=== PATIENT | male | born 1955 | race Caucasian/White ===

== ENCOUNTER 2018-10-08 22:54 | Inpatient (IN) | payer MEDICARE ==
[2018-10-08] MEDS ORDERED: Lorazepam 2 MG/ML VIAL ONE (23:26)
[2018-10-08] MEDS ORDERED: Octreotide Acetate 1,250 MCG in Sodium Chloride 0.9% 250 ML 250 ML IVPB SCH (23:45)
[2018-10-08 23:53] LABS: PTT 24.3 SEC (22.9-36.1); Prothrombin Time 13.5 SEC (12.0-14.7)
--- NOTE | 2018-10-08 23:53 | RAD ---
EXAM: CHEST ONE VIEW HISTORY: Vomiting blood. Altered mental status. Sepsis. COMPARISON: None FINDINGS: The cardiac silhouette and pulmonary vasculature is within normal limits. Calcified right hilar and m ediastinal lymph nodes are seen. The lungs are clear. The osseous structures are intact. IMPRESSION: No acute cardiopulmonary process.
[2018-10-09 00:09] LABS: Acetaminophen Less than 6.0 mcg/mL (10.0-30.0); Alcohol Less than 10 mg/dL (Less than 10); Magnesium 1.9 mg/dL (1.6-2.6); Salicylate Less than 8.0 mg/dL (15.0-30.0)
[2018-10-09 00:14] LABS: ALT (SGPT) 27 U/L (8-55); AST (SGOT) 20 U/L (5-34); Albumin 3.8 g/dL (3.4-4.8); Alkaline Phosphatase 44 U/L (40-150); Anion Gap 12 mmol/L (10-20); BUN (Urea Nitrogen) 36 mg/dL (8.4-25.7); Bilirubin, Total 3.1 mg/dL (0.2-1.2); Calc. Creatinine Clearance 0 mL/min (70-130); Carbon Dioxide 28 mmol/L (23-31); Chloride 95 mmol/L (98-107); Estimated GFR-MDRD Greater than 90; Globulin 2.4 g/dL (2.4-3.5); Glucose 140 mg/dL (80-115); Lipase 5 U/L (8-78); Potassium 3.2 mmol/L (3.5-5.1); Protein, Total 6.2 g/dL (5.8-8.1); Sodium 132 mmol/L (136-145)
[2018-10-09 00:17] LABS: Band 16 % (5-11); Hemoglobin 13.2 g/dL (14.0-18.0); Lymphocytes 6 % (21-51); MDiff Complete? YES; Mean Corpuscular HGB CONC 33.9 g/dL (32.0-36.0); Mean Corpuscular Hemoglobin 34.1 pg (27.0-31.0); Mean Platelet Volume 8.4 fL (7.4-10.4); Monocytes 7 % (0-10); Neutrophil 71 % (42-75); Platelet Count 316 thou/uL (130-400); RBC Distribution Width 11.7 % (11.5-14.5); Red Blood Cell (RBC) Count 3.87 mill/uL (4.70-6.10); White Blood Cell (WBC) Count 23.9 thou/uL (4.8-10.8)
[2018-10-09 00:31] LABS: CKMB 1.5 ng/mL (0-6.6)
[2018-10-09] MEDS ORDERED: Lorazepam 2 MG/ML VIAL ONE (00:35)
[2018-10-09 02:59] LABS: Troponin I 0.018 ng/mL (< 0.028)
[2018-10-09] MEDS ORDERED: Ondansetron ODT 4 MG TAB SL PRN (03:43)
[2018-10-09] MEDS ORDERED: Ondansetron PF 4 MG/2 ML Vial IVP PRN (03:43)
[2018-10-09] MEDS ORDERED: Lorazepam 2 MG/ML VIAL SLOW IVP PRN (03:43)
[2018-10-09] MEDS ORDERED: Sodium Chloride 0.9% 1,000 ML IV SCH (03:45)
[2018-10-09 03:51] LABS: Lactic Acid 1.3 mmol/L (0.5-2.2)
[2018-10-09 04:01] LABS: Bilirubin Negative (Negative); Blood, Urine Small (Negative); Clarity CLEAR (Clear); Glucose, Urine (Dipstick) Negative (Negative); Leukocyte Negative (Negative); Nitrite Negative (Negative); Protein, Urine (Dipstick) Negative (Neg-Trace); Specific Gravity, Urine 1.043 (1.002-1.036); Urobilinogen 0.2 mg/dL (0.2-1.0); pH, Urine 6.5 (5.0-9.0)
[2018-10-09 04:03] LABS: Bacteria/HPF None Seen HPF (None Seen); Hyaline Casts/LPF 0-3 HYALINE CAST LPF (0-3 Hyaline); Squamous Epithelial None Seen HPF (0-3); WBC/HPF 0-3 HPF (0-3)
[2018-10-09 04:06] VITALS: BMI 22.6
[2018-10-09 04:09] LABS: Amphetamine Not Detected (NotDetected); Cocaine Metabolite Screen Not Detected (NotDetected); Medtox Reader # READER 4; Methamphetamine Not Detected (NotDetected); Opiate Screen Not Detected (NotDetected); Phencyclidine (PCP) Not Detected (NotDetected); THC/Cannabinoid Screen Not Detected (NotDetected)
[2018-10-09 04:10] LABS: Barbiturates Screen Not Detected (NotDetected); Benzodiazepine Screen Detected (NotDetected); Medtox Control Line Valid? VALID (VALID); Methadone Not Detected (NotDetected); Oxycodone Screen Not Detected (NotDetected); Tricyclic Screen Not Detected (NotDetected)
[2018-10-09] MEDS ORDERED: Diazepam 5 MG TAB PO PRN (05:29)
[2018-10-09] MEDS ORDERED: Diazepam 5 MG TAB PO SCH (05:30)
[2018-10-09] MEDS ORDERED: Thiamine HCl 200 MG/2 ML VIAL IM SCH (05:30)
--- NOTE | 2018-10-09 05:51 | HP ---
PRIMARY CARE PHYSICIAN: Unknown. CODE STATUS: Full code. TIME OF EVALUATION: 2:00 a.m. By the time of my examination, the patient has had sedation due to DT and the patient is unable to give any history. Information has been gathered from the records and from the ER staff. CHIEF COMPLAINT: GI bleeds and change in mental status. HISTORY OF PRESENT ILLNESS: This is a 63-year-old male patient with past medical history of alcohol abuse, hyperlipidemia, hypertension, neurological disease, and generalized seizures, came to the hospital after having generalized weakness and hematemesis, when he was mowing the lawn this afternoon, has continued vomiting during the evening and for that reason, he was brought in immediately to the ER. The patient was found to be tachycardic and hypertensive. Symptoms were severe with no clear triggers, no alleviating factors. He was also found to have a white count of 24,000, with a positive UA and hyperammonemia of 102. REVIEW OF SYSTEMS: Unable to obtain. The patient is nonverbal due to sedation. He is arousal. PAST MEDICAL HISTORY: As mentioned in the HPI. PAST SURGICAL HISTORY: Leg surgery and surgical history of appendectomy. PSYCHIATRIC HISTORY: No previous psych history. SOCIAL HISTORY: The patient drinks everyday, more than 10 drinks per day. Alcohol history, 12 packs a day. The patient denies drug use history. No smoking history. FAMILY HISTORY: Reviewed, noncontributory for current presentation. KNOWN ALLERGIES: No known drug allergies. REPORTED MEDICATION: Aspirin. PHYSICAL EXAMINATION: VITAL SIGNS: On presentation; blood pressure 126/80 with heart rate 112, respiratory rate was 18, and temperature 99.2. Pain was 0/10. Oxygen saturation 98% on room air. GENERAL APPEARANCE: The patient is sedated after getting Ativan for DT, disoriented, arousal. HEENT: Eyes, normal conjunctivae. Moist oral mucosa. Anicteric. No JVD. RESPIRATORY: Bilateral air entry. No rales. No wheezing. Symmetric expansion. CARDIOVASCULAR: The patient is tachycardic and hypertensive. No murmurs. No gallop. Mild bilateral leg edema. ABDOMEN: Soft. Normal bowel sounds. MUSCULOSKELETAL: Baseline range of motion and strength. SKIN: Warm and intact. No pallor. No rash. No redness. Capillary refill seems to be intact. NEURO: No evidence of any new focal weakness. PSYCH: Unable to fully explore. The patient is sedated due to Ativan due to agitation and hallucinations as per the ER report. DIAGNOSTIC DATA: EKG; the patient had sinus tachycardia, [place] 148, QRS 78, and QT corrected 471. Chest x-ray was reviewed. The patient has no acute cardiopulmonary process. LABORATORY DATA: Reviewed. The patient has white count of 23.9 with hemoglobin 13, MCV 101, and platelet count 316. PT 13.5, INR 1.0, and PTT 24.3. Chemistry; sodium 132, potassium 3.2, chloride 95, carbon dioxide 28, anion gap 12, BUN 36, creatinine 0.77, GFR greater than 90, and glucose 140. Lactic acid 2.4, repeat one 1.3. Calcium 9, magnesium 1.9, and total bilirubin 3.1. LFTs were negative. The troponins; the first one was 0.038 and the second one was 0.018. Serum total protein 6.2 and lipase 5. Urine was done and was negative for any infection. Toxicology was done, only positive medication was benzodiazepine. ASSESSMENT AND PLAN: The patient will be placed in the hospital with following medical problems; 1. Delirium tremens. The patient has acute encephalopathy associated with tachycardia and hypertension. The patient is a chronic alcohol user. Alcohol was negative. The patient is being given Ativan, has been sedated. He is going to be placed in IMCU. We will monitor closely. 2. Systemic inflammatory response syndrome. The patient has tachycardia and also has leukocytosis, unclear source for any infection, we will monitor. Lactic acidosis resolved in the ER after initial treatment. We will treat accordingly. 3. Upper gastrointestinal bleeding. The patient has reported hematemesis. We will trend hemoglobin and continue octreotide and Protonix drip, we will consult GI. Follow recommendations. 4. Acute hepatic encephalopathy. The patient has ammonia of 102. However, he has gastrointestinal bleeding, so we will not give lactulose still Gastroenterology sees the patient. We will give rifaximin. 5. Deep venous thrombosis prophylaxis. Place the patient on SCDs. 6. Hyperlipidemia. Low-cholesterol diet is advised. Reconcile home medications. 7. Hypertension, is controlled. Reconcile home medications. We will not treat aggressively due to risk of hypotension. Job ID: [id number]
[2018-10-09] MEDS: Pantoprazole 80 MG, Admixture Fee 1 EACH in Sodium Chloride 0.9% 100 ML IVP SCH ×2 (05:52→15:09)
[2018-10-09 06:03] LABS: Hemoglobin 10.6 g/dL (14.0-18.0)
[2018-10-09 06:31] LABS: Troponin I 0.022 ng/mL (< 0.028)
[2018-10-09 07:29] LABS: Anion Gap 9 mmol/L (10-20); BUN (Urea Nitrogen) 24 mg/dL (8.4-25.7); Calc. Creatinine Clearance 148 mL/min (70-130); Calcium 7.9 mg/dL (7.8-10.44); Carbon Dioxide 29 mmol/L (23-31); Chloride 102 mmol/L (98-107); Estimated GFR-MDRD Greater than 90; Glucose 143 mg/dL (80-115); Magnesium 2.2 mg/dL (1.6-2.6); Phosphorus 3.3 mg/dL (2.3-4.7); Potassium 3.1 mmol/L (3.5-5.1); Sodium 137 mmol/L (136-145)
[2018-10-09 07:31] LABS: Iron 161 ug/dL (65-175); Iron Binding Capacity, Total 164 mcg/dL (261-462)
[2018-10-09] MEDS: Rifaximin 550 MG TAB PO SCH ×2 (09:34→21:51)
[2018-10-09] MEDS: Folic Acid 1 MG TAB PO SCH (09:34)
[2018-10-09] MEDS: Multivitamin W/ Minerals 1 TAB PO SCH (09:34)
[2018-10-09] MEDS ORDERED: Albuterol Sulfate 1.25 MG/3 ML NEB ONE (11:53)
[2018-10-09] MEDS: D5 NS w/ 40 mEq KCl 1,000 ML IV SCH ×2 (13:48→21:51)
--- NOTE | 2018-10-09 15:14 | OP ---
DATE OF PROCEDURE: 10/09/2018 OPERATIVE PROCEDURE: Esophagogastroduodenoscopy. PREOPERATIVE DIAGNOSIS: Gastrointestinal bleeding. POSTOPERATIVE DIAGNOSES: 1. Large circumference ulcer over distal esophagus with blood clot and also hemorrhagic appearing mucosa. 2. Retained blood clots in the gastric fundus, but no active bleeding seen. 3. Hiatal hernia. DESCRIPTION OF PROCEDURE: The patient was placed on his left lateral position and was given sedation by Anesthesia Department. A Pentax video gastroscope under direct vision passed down the oropharynx, past the GE junction into the stomach. In the upper esophagus, no pathology seen. The patient had evidence of large ulceration occupying the entire loop of the esophagus with a hemorrhagic appearing mucosa and some blood clots. No active bleeding seen. I do not see any varicosities. Because of the esophagitis and ulceration, the varicosities could be hiatal hernia. There was some old blood clots in the fundus,which were suctioned. There was no fresh bleeding seen. In the gastric body, gastric antrum, incisura angularis, no pathology seen. The duodenal bulb and descending duodenum, no pathology seen. The scope was carefully withdrawn and water was used to irrigate and washout the esophogeal mucosa. This area of hemorrhage-appearing mucosa has a large ulceration. There is no active bleeding seen. The stomach was decompressed and scope was removed. RECOMMENDATIONS: 1. Treat for alcohol withdrawal. 2. Continue PPI. 3. Serial hemoglobin and hematocrit. Job ID: [id number]
[2018-10-09 18:43] LABS: Hemoglobin 9.6 g/dL (14.0-18.0)
[2018-10-09] MEDS: Acetaminophen 325 MG TAB PO PRN (22:05)
[2018-10-10 00:14] LABS: Hemoglobin 8.8 g/dL (14.0-18.0)
[2018-10-10] MEDS: Pantoprazole 80 MG, Admixture Fee 1 EACH in Sodium Chloride 0.9% 100 ML IVP SCH (00:52)
[2018-10-10 03:39] LABS: #Basophils 0.1 thou/uL (0.0-0.2); #Eosinphils 0.1 thou/uL (0.0-0.7); #Lymphocytes 2.6 thou/uL (1.20-3.40); #Monocytes 0.5 thou/uL (0.11-0.59); #Neutrophils 5.5 thou/uL (1.40-6.50); %Basophils 0.6 % (0.0-1.0); %Eosinophils 0.9 % (0.0-10.0); %Lymphocytes 29.7 % (21.0-51.0); %Monocytes 5.8 % (0.0-10.0); Mean Corpuscular HGB CONC 34.1 g/dL (32.0-36.0); Mean Corpuscular Hemoglobin 34.7 pg (27.0-31.0); Mean Platelet Volume 8.5 fL (7.4-10.4); Platelet Count 217 thou/uL (130-400); RBC Distribution Width 11.5 % (11.5-14.5); White Blood Cell (WBC) Count 8.8 thou/uL (4.8-10.8)
[2018-10-10 03:53] LABS: Anion Gap 8 mmol/L (10-20); BUN (Urea Nitrogen) 10 mg/dL (8.4-25.7); Calc. Creatinine Clearance 154 mL/min (70-130); Calcium 7.7 mg/dL (7.8-10.44); Carbon Dioxide 26 mmol/L (23-31); Chloride 107 mmol/L (98-107); Estimated GFR-MDRD Greater than 90; Glucose 160 mg/dL (80-115); Potassium 3.5 mmol/L (3.5-5.1); Sodium 137 mmol/L (136-145)
[2018-10-10] MEDS: D5 NS w/ 40 mEq KCl 1,000 ML IV SCH ×2 (05:52→09:34)
[2018-10-10] MEDS: Acetaminophen 325 MG TAB PO PRN ×2 (07:06→15:54)
[2018-10-10] MEDS: Folic Acid 1 MG TAB PO SCH (08:52)
[2018-10-10] MEDS: Rifaximin 550 MG TAB PO SCH ×2 (08:52→20:00)
[2018-10-10] MEDS: Multivitamin W/ Minerals 1 TAB PO SCH (08:52)
[2018-10-10] MEDS: Magnesium Oxide 400 MG TAB PO SCH (08:52)
[2018-10-10] MEDS: Thiamine 100 MG TAB PO SCH (08:52)
[2018-10-10] MEDS: Diazepam 5 MG TAB PO PRN ×2 (09:27→20:00)
--- NOTE | 2018-10-10 09:29 | PDOC.PN ---
- Subjective Encounter Start Date: 10/10/18 (f/u alcohol withdrawal) Encounter Start Time: 09:27 Subjective: Pt without any complaints. 4 bm's dark/tarry overnight. -: Denies any pain. Is feeling jittery - requesting something to help with -: this. notes a lot of loss and pain in life, and increasing alcohol at home - Objective Resuscitation Status - Order Detail: 10/09/18 04:26 Resuscitation Status Routine Resuscitation Status: FULL: Full Resuscitation Vital Signs & Weight: Vital Signs (12 hours) Temp BP 10/10/18 07:10 97.8 F 10/10/18 04:00 122/69 10/10/18 03:10 97.5 F L 10/10/18 00:00 111/78 10/09/18 23:46 97.6 F Weight Weight 174 lb 14.4 oz Most Recent Monitor Data Heart Rate from ECG 78 NIBP 116/69 NIBP BP-Mean 84 Respiration from ECG 16 SpO2 96 I&O: 10/09/18 10/10/18 10/11/18 06:59 06:59 06:59 Intake Total 3848.5 Output Total 1750 Balance 2098.5 Result Diagrams: 10/10/18 03:29 10/10/18 03:29 EKG Reviewed by me: Yes (tele - sinus 80's, pvc's) Phys Exam - Physical Examination Constitutional: NAD Respiratory: no wheezing, no rales, no rhonchi, clear to auscultation bilateral Cardiovascular: RRR, no significant murmur Gastrointestinal: soft, non-tender, no distention, positive bowel sounds Musculoskeletal: no edema, pulses present Neurological: non-focal Psychiatric: normal affect Dx/Plan (1) GI bleed Code(s): K92.2 - GASTROINTESTINAL HEMORRHAGE, UNSPECIFIED Status: Acute (2) Alcohol abuse Code(s): F10.10 - ALCOHOL ABUSE, UNCOMPLICATED Status: Chronic (3) Hyperammonemia Code(s): E72.20 - DISORDER OF UREA CYCLE METABOLISM, UNSPECIFIED Status: Resolved (4) Anemia Code(s): D64.9 - ANEMIA, UNSPECIFIED Status: Acute Qualifiers: Other causes of anemia: acute posthemorrhagic - Plan * Distal esophageal ulcer - d/w Dr. Luna and can d/c octreotide, chagne protonix to BID PO, and advance diet to mechanical soft * lower IVF rate * ammonia lower - change lactulose to once daily * continue ASE protocol and vitamin replacement/supplement * will check CBC this afternoon and again tomorrow * pt/ot * pt interested in spiritual support to assist with loss/grief and current situation that he feels bad about * * dvt prophy -scd's * code status full. * * pt remains at high risk in current condition. Reviewed plan of care with patient/RN, no questions or further needs at end of eval.
--- NOTE | 2018-10-10 11:36 | PRG ---
DATE OF SERVICE: 10/10/2018 SUBJECTIVE: Mr. Juan David Kong is a 63-year-old male, hospitalized with upper GI bleeding. He underwent EGD and was found to have a very large confluent ulceration over the distal esophagus. There is no hemorrhagic area over the esophagus. At the time of endoscopy, no active bleeding seen. He did have some old blood in the stomach. The patient's blood count has been dropping down slowly. He had one stool today and he had three stools yesterday. All the stools are dark in color. Blood count did drop down from admitting hemoglobin 13.2 to 10.6 yesterday and 9 today. It has been staying around 9. Yesterday, it was 8.8 and today 9. His hematocrit is 24.4. He has no abdominal pain, no nausea or vomiting. He had one stool. He is tolerating clear liquid diet. PHYSICAL EXAMINATION: GENERAL: Appears comfortable. He is awake, alert, and communicative. Afebrile. Pulse is 95, blood pressure is 115/82. CARDIOVASCULAR AND LUNGS: Within normal limits. ABDOMEN: Soft. No organomegaly. No tenderness. No masses. LABORATORY DATA: WBC 8800, hemoglobin is 9, hematocrit 26.4, MCV 102, platelet count 217,000. Chemistry panel; the sodium and lytes are normal. BUN is 10, creatinine 0.53, glucose 160, calcium 7.7. RECOMMENDATIONS: 1. Mechanical soft diet. 2. Discontinue octreotide and IV Protonix drip. 3. Serial H and H. 4. Protonix 40 mg p.o. twice a day. If he does well, consider discharge to medical floor. Job ID: [id number]
[2018-10-10 13:08] LABS: #Eosinphils 0.1 thou/uL (0.0-0.7); #Lymphocytes 1.6 thou/uL (1.20-3.40); #Monocytes 0.6 thou/uL (0.11-0.59); #Neutrophils 5.9 thou/uL (1.40-6.50); %Basophils 0.1 % (0.0-1.0); %Eosinophils 1.1 % (0.0-10.0); %Lymphocytes 19.7 % (21.0-51.0); %Monocytes 6.9 % (0.0-10.0); %Neutrophils 72.1 % (42.0-75.0); Hemoglobin 10.5 g/dL (14.0-18.0); Mean Corpuscular HGB CONC 33.4 g/dL (32.0-36.0); Mean Corpuscular Hemoglobin 34.3 pg (27.0-31.0); Mean Platelet Volume 8.4 fL (7.4-10.4); Platelet Count 240 thou/uL (130-400); RBC Distribution Width 11.6 % (11.5-14.5); Red Blood Cell (RBC) Count 3.06 mill/uL (4.70-6.10); White Blood Cell (WBC) Count 8.2 thou/uL (4.8-10.8)
--- NOTE | 2018-10-10 19:05 | CON ---
DATE OF CONSULTATION: 10/10/2018 SUBJECTIVE: Mr. Kong is a 63-year-old male, who presented with GI bleed. He subsequently underwent endoscopy, was found to have an esophageal ulceration. He is not clinically bleeding at this time. OBJECTIVE: GENERAL: Mr. Kong is a 63-year-old male. VITAL SIGNS: He is afebrile. Blood pressure is 111/78, heart rate is in the 70s, respiratory rate is in the teens, oximetry is 96% on room air. His weight is 174 pounds. His intake and output are positive just over 2 L. HEENT: Pupils react. NECK: Supple. LUNGS: Clear. HEART: Regular rhythm. ABDOMEN: Soft and nontender. EXTREMITIES: Without clubbing, cyanosis, or edema. PAST HISTORY: Unknown FAMILY HISTORY: Unknown SOCIAL HISTORY: He admits to drinking pretty much all day every day. He usually drinks just beer, drinks more than a 12-pack a day. He is a nonsmoker. REVIEW OF SYSTEMS: 10 point review of systems completed, otherwise negative. LABORATORY DATA: Hemoglobin was 10.6 yesterday morning and is 10.5 now. His electrolytes are normal. He is felt to be a candidate to transfer out of the critical care/intermediate care unit. Other problems include "CP," history of lipid disorder, history of hypertension, history of seizure disorder reportedly, history of an appendectomy and surgery on the leg. He admits to drinking pretty much all day every day. He usually drinks just beer, drinks more than a 12-pack a day. He is a nonsmoker. He is formally in the [employer] business. He received a laid off for his company closed. He is currently not working. IMPRESSION: Gastrointestinal bleeding secondary to an esophageal ulcer. He has been seen because of his present stay in the intermediate care unit. I do not feel that he is alcohol withdrawing, although I am not sure his memories are sharp as it should be. He did come in with an elevated ammonia and this has been treated. He obviously with this has significant liver disease. He has been followed by Gastroenterology. He does not have a coagulopathy, however, and had a normal serum protein on admission so he clearly has adequate liver synthetic function at least for now. He recognizes the need to get into some type of support network. He has a friend, who is an alcohol counselor, who had not been drinking for 5 years and he is trying to make some arrangements to start spending time with him. Once he transfers out of the intermediate care unit, probably there is no need for us to see him since Gastroenterology and the hospitalist are providing excellent care. We will sign off. TIME SPENT: This is a 70-minute consult, with greater than 50% of the time spent on the unit coordinating care, counseling the patient. Job ID: [id number] MTDD
[2018-10-11] MEDS: D5 NS w/ 40 mEq KCl 1,000 ML IV SCH (05:26)
[2018-10-11 05:36] LABS: #Eosinphils 0.2 thou/uL (0.0-0.7); #Lymphocytes 2.5 thou/uL (1.20-3.40); #Monocytes 0.5 thou/uL (0.11-0.59); #Neutrophils 4.1 thou/uL (1.40-6.50); %Basophils 0.5 % (0.0-1.0); %Eosinophils 2.4 % (0.0-10.0); %Lymphocytes 33.9 % (21.0-51.0); %Monocytes 7.3 % (0.0-10.0); %Neutrophils 55.9 % (42.0-75.0); Hemoglobin 9.4 g/dL (14.0-18.0); Mean Corpuscular HGB CONC 33.9 g/dL (32.0-36.0); Mean Corpuscular Hemoglobin 34.6 pg (27.0-31.0); Mean Platelet Volume 8.8 fL (7.4-10.4); Platelet Count 225 thou/uL (130-400); RBC Distribution Width 11.5 % (11.5-14.5); Red Blood Cell (RBC) Count 2.72 mill/uL (4.70-6.10); White Blood Cell (WBC) Count 7.3 thou/uL (4.8-10.8)
[2018-10-11 05:58] LABS: ALT (SGPT) 28 U/L (8-55); AST (SGOT) 26 U/L (5-34); Alkaline Phosphatase 36 U/L (40-150); Anion Gap 10 mmol/L (10-20); BUN (Urea Nitrogen) 4 mg/dL (8.4-25.7); Bilirubin, Total 0.9 mg/dL (0.2-1.2); Calc. Creatinine Clearance 148 mL/min (70-130); Calcium 8.2 mg/dL (7.8-10.44); Carbon Dioxide 26 mmol/L (23-31); Chloride 107 mmol/L (98-107); Estimated GFR-MDRD Greater than 90; Globulin 1.9 g/dL (2.4-3.5); Glucose 103 mg/dL (80-115); Potassium 3.3 mmol/L (3.5-5.1); Protein, Total 4.9 g/dL (5.8-8.1); Sodium 140 mmol/L (136-145)
[2018-10-11] MEDS: Thiamine 100 MG TAB PO SCH (08:07)
[2018-10-11] MEDS: Acetaminophen 325 MG TAB PO PRN (08:07)
[2018-10-11] MEDS: Magnesium Oxide 400 MG TAB PO SCH (08:07)
[2018-10-11] MEDS: Rifaximin 550 MG TAB PO SCH (08:07)
[2018-10-11] MEDS: Folic Acid 1 MG TAB PO SCH (08:08)
[2018-10-11] MEDS: Multivitamin W/ Minerals 1 TAB PO SCH (08:08)
[2018-10-11] MEDS: Diazepam 5 MG TAB PO PRN (09:45)
--- NOTE | 2018-10-11 10:57 | PRG ---
DATE OF SERVICE: 10/11/2018 SUBJECTIVE: This is a 63-year-old male, hospitalized with upper GI bleeding 3 days ago. He underwent EGD and was found to have a very large ulceration in the distal esophagus and some hemorrhagic mucosa. He has done well over the last 48 hours. He is still passing some dark stool from the old blood left in the colon. stable. It has been drifting around 9 to 9.4. He has no abdominal pain. No nausea or vomiting. He feels very weak and no energy and he is trying to ambulate. OBJECTIVE: GENERAL: Appears comfortable. He is awake, alert, and communicative. He is not confused. He is oriented to time, place, and person. VITAL SIGNS: Temperature 98.4 degrees Fahrenheit, pulse is 83, blood pressure 113/73. CARDIOVASCULAR: Within normal limits. LUNGS: Within normal limits. ABDOMEN: Soft and nontender. Bowel sounds active. LABORATORY DATA: From today, CBC; WBC 7300, hemoglobin 9.4, hematocrit 27.7, MCV 102, platelet count 225,000. Chem-7 is actually normal except for slightly low potassium of 3.3. Liver function tests are actually normal. The albumin is 3. RECOMMENDATIONS: 1. Continue PPI. 2. Diet as tolerated. 3. Follow up LFTs. 4. He is advised to stop drinking completely when he gets out of the hospital. Job ID: [id number]
--- NOTE | 2018-10-11 12:01 | PDOC.PN ---
- Subjective Encounter Start Date: 10/11/18 (f/u esophageal ulcer) Encounter Start Time: 11:59 Subjective: Pt c/o weakness, some lightheadedness, dull headache. Denies any n/ v/ -: continues to pass dark stools. - Objective Resuscitation Status - Order Detail: 10/09/18 04:26 Resuscitation Status Routine Resuscitation Status: FULL: Full Resuscitation Vital Signs & Weight: Vital Signs (12 hours) Temp Pulse Resp BP BP BP Pulse Ox 10/11/18 11:38 98.2 F 89 18 115/78 98 10/11/18 08:08 98.2 F 108 H 20 118/82 98 10/11/18 08:00 118/82 98 10/11/18 04:00 98.4 F 83 16 113/73 96 10/11/18 00:00 98.1 F 78 16 117/70 117/70 95 Weight Weight 174 lb 14.4 oz Most Recent Monitor Data Heart Rate from ECG 80 NIBP 139/82 NIBP BP-Mean 101 Respiration from ECG 19 SpO2 99 I&O: 10/10/18 10/11/18 10/12/18 06:59 06:59 06:59 Intake Total 3848.5 2060.5 Output Total 1750 3575 Balance 2098.5 -1514.5 Result Diagrams: 10/11/18 04:36 10/11/18 04:36 Phys Exam - Physical Examination Constitutional: NAD Respiratory: no wheezing, no rales, no rhonchi, clear to auscultation bilateral Cardiovascular: RRR, no significant murmur Gastrointestinal: soft, non-tender, no distention, positive bowel sounds Musculoskeletal: no edema Neurological: non-focal Psychiatric: normal affect Deviation from normal: occ tearful when he discusses how bad he felt prior to admission Dx/Plan (1) GI bleed Code(s): K92.2 - GASTROINTESTINAL HEMORRHAGE, UNSPECIFIED Status: Acute (2) Alcohol abuse Code(s): F10.10 - ALCOHOL ABUSE, UNCOMPLICATED Status: Chronic (3) Hyperammonemia Code(s): E72.20 - DISORDER OF UREA CYCLE METABOLISM, UNSPECIFIED Status: Resolved (4) Anemia Code(s): D64.9 - ANEMIA, UNSPECIFIED Status: Acute Qualifiers: Other causes of anemia: acute posthemorrhagic (5) Hypokalemia Code(s): E87.6 - HYPOKALEMIA Status: Acute (6) Hypoalbuminemia Code(s): E88.09 - OTH DISORDERS OF PLASMA-PROTEIN METABOLISM, NEC Status: Acute - Plan * * Distal esophageal ulcer - endoscopy by Dr. Luna, on BID PPI * * ammonia level resolved - will d/c lactulose and rifaximin. Pt does not have a hx of cirrhosis. Follow mental status and recheck in AM. * * continue ASE protocol and vitamin replacement/supplement * anemia stable * replace potassium - will add mag level on today's labs * * cont pt/ot * case management consult for SNF vs home health for weakness - anticipate pt ready for d/c tomorrow from acute care * * pt interested in spiritual support to assist with loss/grief and current situation that he feels bad about - spiritual consult placed, RN to call today * * dvt prophy -scd's * code status full. * * pt remains at high risk in current condition. Reviewed plan of care with patient/RN, no questions or further needs at end of eval..
--- NOTE | 2018-10-11 20:05 | PRG ---
DATE OF SERVICE: 10/11/2018 OBJECTIVE: VITAL SIGNS: He is afebrile. Heart rate is in 80s, respiratory rates in the teens, and blood pressure 115/78. LUNGS: Clear. HEART: Regular rhythm. ABDOMEN: Soft. EXTREMITIES: Without edema. LABORATORY DATA: White count 7.3, hemoglobin 9.4, and platelets 225. Sodium 140, potassium 3.3, chloride 107, bicarb 26, BUN 4, and creatinine 0.59. IMPRESSION: 1. Status post gastrointestinal bleed secondary to esophageal ulcer, clinically stable. 2. Heavy alcohol consumption prior to admission. He has contacted his sponsor. This is not alcoholics anonymous, but it is a Taoism support group that he has used in the past and plans to get back in with. There is no reason for Pulmonary to continue following. We will sign off. Job ID: [id number]
[2018-10-11] MEDS ORDERED: Melatonin 3 MG TAB PO PRN (20:08)
[2018-10-11] MEDS ORDERED: Diazepam 5 MG TAB PO PRN (20:09)
[2018-10-12 04:00] LABS: #Eosinphils 0.2 thou/uL (0.0-0.7); #Lymphocytes 2.5 thou/uL (1.20-3.40); #Monocytes 0.5 thou/uL (0.11-0.59); #Neutrophils 3.8 thou/uL (1.40-6.50); %Basophils 0.5 % (0.0-1.0); %Eosinophils 2.4 % (0.0-10.0); %Lymphocytes 35.3 % (21.0-51.0); %Monocytes 7.4 % (0.0-10.0); %Neutrophils 54.4 % (42.0-75.0); Hemoglobin 9.6 g/dL (14.0-18.0); Mean Corpuscular HGB CONC 33.4 g/dL (32.0-36.0); Mean Corpuscular Hemoglobin 34.1 pg (27.0-31.0); Mean Platelet Volume 8.3 fL (7.4-10.4); Platelet Count 225 thou/uL (130-400); RBC Distribution Width 11.6 % (11.5-14.5)
[2018-10-12 04:28] LABS: ALT (SGPT) 37 U/L (8-55); AST (SGOT) 34 U/L (5-34); Albumin 3.2 g/dL (3.4-4.8); Alkaline Phosphatase 39 U/L (40-150); Anion Gap 10 mmol/L (10-20); BUN (Urea Nitrogen) 6 mg/dL (8.4-25.7); Bilirubin, Total 0.7 mg/dL (0.2-1.2); Calc. Creatinine Clearance 143 mL/min (70-130); Calcium 8.4 mg/dL (7.8-10.44); Carbon Dioxide 26 mmol/L (23-31); Chloride 108 mmol/L (98-107); Estimated GFR-MDRD Greater than 90; Glucose 103 mg/dL (80-115); Magnesium 2.1 mg/dL (1.6-2.6); Potassium 3.9 mmol/L (3.5-5.1); Protein, Total 5.2 g/dL (5.8-8.1); Sodium 140 mmol/L (136-145)
--- NOTE | 2018-10-12 08:30 | CON ---
DATE OF CONSULTATION: 10/09/2018 REASON FOR CONSULTATION: GI hemorrhage. HISTORY OF PRESENT ILLNESS: Mr. Juan David Kong is a 63-year-old male, brought by ambulance because of history of nausea, vomiting, and hematemesis. The patient lives alone. He does admit to drinking alcohol on a daily basis. He says he only drinks 6 to 7 beers every day. He does not drink any hard liquor. The patient also smokes until a week ago. He quit smoking a week ago. He is a mild smoker smoking about 4 or 5 cigarettes per day. The patient has had abdominal pain with nausea and vomiting. It started approximately 2 days ago, . The symptoms persisted yesterday and he is still having vomiting blood and felt to be weak. They also mention of DTs in the admitting history and physical by Dr. Mosquera. The patient is very sleepy and not talking, but was alert, communicative. He is oriented to time, place, and person. The patient tells me an episode of abdominal pain, nausea, vomiting, vomiting blood 3 or 4 months ago. He did not tell his doctor about this and the symptoms resolved. The patient has no prior history of peptic ulcer. No history of any esophagitis. The patient denies taking aspirin or any NSAID medication. The patient does see Dr. Boateng in [place] with family doctor. He was never told of liver disease from before. At the present time, the patient is awake, alert, and communicative. Denies abdominal pain. No nausea or vomiting. As per the nurses, he had a black tarry stool this morning. On admission, he was tachycardic, but pulse is , his blood pressure 110/70. No relevant history. ALLERGIES: NONE. SOCIAL HISTORY: The patient is single. He smokes 5 cigarettes per day. No history of drug abuse. Alcohol intake is 6 to 7 beers every day. No drug abuse. MEDICAL ILLNESS: 1. Hypertension. 2. Hyperlipidemia. SURGERIES: Appendectomy many years ago. FAMILY HISTORY: Unremarkable. REVIEW OF SYSTEMS: UNDERWATER WELDER: No history of seizure disorder. No syncope. No chronic headache. No TIA. RESPIRATORY SYSTEM: No history of chronic coughing, hemoptysis, or dyspnea. CARDIOVASCULAR SYSTEM: No chest pain. No palpitation. No dyspnea, orthopnea, or PND. GI: Abdominal pain, nausea, vomiting, hematemesis. No rectal bleeding. Bowel sounds normal. : No dysuria or hematuria. MUSCULOSKELETAL: No back pain, arthralgias, or myalgias. NEUROENDOCRINE: Unremarkable. HEAD: No headache. ENT: Unremarkable. PHYSICAL EXAMINATION: GENERAL: He is awake, alert, and communicative. He appears very comfortable. He is in no distress. VITAL SIGNS: Afebrile, pulse is 87, blood pressure 110/70. HEENT: Conjunctivae clear. NECK: Supple. No adenitis or thyromegaly noted. CARDIOVASCULAR SYSTEM: First and second heart sounds heard. LUNGS: Clear to auscultation. ABDOMEN: Soft and nondistended. Abdomen is nontender. No organomegaly or masses. Bowel sounds normal. EXTREMITIES: Reveal no edema. LABORATORY DATA: CBC; WBC 23,900; hemoglobin 13.2, dropping to 10.6; hematocrit 39.1, dropping down to 31.3; MCV 101; platelet count 316,000; polymorphs 71; bands 16; lymphocytes 6. Chemistry panel shows BUN of 24, which is normal. Lytes are normal except potassium 3.1, iron is 161, TIBC is 164, ferritin 528.59, magnesium 2.2, calcium 7.9. No liver function tests. CLINICAL IMPRESSION: 1. A 63-year-old with abdominal pain, nausea, vomiting, and hematemesis as well. The patient will mostly get bleeding from upper GI tract from ulcer disease or possibly a Coleen-Rodriguez tear. At the present time, he is hemodynamically stable. 2. Leukocytosis with bandemia, but he is not definitely septic. He is also afebrile. 3. Hypertension. 4. Hyperlipidemia. 5. Appendectomy. RECOMMENDATION: 1. Continue IV PPI with octreotide. 2. Follow up H and H. 3. Transfuse p.r.n. 4. EGD later on today. 5. Make further recommendation after EGD. Job ID: [id number]
[2018-10-12] MEDS: Multivitamin W/ Minerals 1 TAB PO SCH (09:21)
[2018-10-12] MEDS: Magnesium Oxide 400 MG TAB PO SCH (09:21)
[2018-10-12] MEDS: Folic Acid 1 MG TAB PO SCH (09:21)
[2018-10-12] MEDS: Thiamine 100 MG TAB PO SCH (09:21)
[2018-10-12 12:01] VITALS: BP 139/74; TEMP 98.4
--- NOTE | 2018-10-12 19:04 | DIS ---
DATE OF ADMISSION: 10/09/2018 DATE OF DISCHARGE: 10/12/2018 CONSULTANTS: Dr. Luna of GI. PRIMARY CARE PROVIDER: Dr. Boateng in [place]. MEDICATIONS RECONCILED AT DISCHARGE: Discontinued medication: 1. Aspirin due to esophageal ulcer. New medications; 1. Diazepam 5 mg every 8 hours as needed for anxiety, prescription for 10 tablets. 2. Folic acid 1 mg p.o. daily. 3. Magnesium oxide 400 mg p.o. daily. 4. Multivitamin with minerals 1 p.o. daily. 5. Thiamine 100 mg daily. 6. Protonix 40 mg p.o. b.i.d., prescription provided for 30 days. No refills, further refills to come from the primary care provider or Dr. Luna. FINAL DIAGNOSES: 1. Gastrointestinal bleed secondary to esophageal ulcer. 2. Anemia secondary to gastrointestinal bleed. 3. Alcohol abuse. 4. Hyperammonemia, resolved. 5. Hypoalbuminemia. SECONDARY DIAGNOSIS: Hiatal hernia. HISTORY OF PRESENT ILLNESS: Mr. Kong is a 63-year-old male with the above medical problems, who presented to the emergency room with generalized weakness and hematemesis. He was found to be tachycardic, hypertensive, and having acute upper GI bleed. The patient was admitted for this. The patient underwent evaluation with endoscopy with Dr. Luna, which found a large esophageal ulcer with an adherent clot. He was on a Protonix drip and octreotide, which was changed over to twice daily p.o. Protonix. He tolerated this well and has had no signs of further bleeding. He will continue on this as an outpatient. The patient was on aspirin as an outpatient as well as alcohol use, both contributing to his presentation. His diet has been advanced, but he is now on a regular diet. He has not required a blood transfusion, and his hemoglobin has been stable around 9.5. The patient has been monitored for alcohol withdrawal and has received p.r.n. Valium. This will be continued at home with 10 tablets of Valium taking 1 tablet every 8 hours as needed. He will follow up with Dr. Boateng with regard to both alcohol cessation, which patient desires, as well as addressing any underlying mood disorders. The patient has been counseled on the effects of alcohol and he desires to be sober, and reports he does have support in this area. The patient with a history of hypertension, he has been normotensive here, medications have not been needed. The patient, overall, is feeling well, ambulating without difficulty and does meet criteria for discharge to home. PHYSICAL EXAMINATION: VITAL SIGNS: On day of discharge, blood pressure 139/74, temperature 98.4, pulse 86, respirations 16, and sats 98% on room air. GENERAL: Awake, alert, responsive, in no apparent distress. Able to speak in full sentences. LUNGS: Clear to auscultation bilaterally. No audible wheezing, rhonchi, or rales. HEART: Normal S1 and S2. Regular rate and rhythm. No audible murmurs. ABDOMEN: Soft with present bowel sounds. Nontender, nondistended. EXTREMITIES: No clubbing, cyanosis, or edema. THAKKAR FINDINGS AND TEST RESULTS: CBC; 7, 9.6, 28.6, and 225. INR 1.0. Renal panel; 140, 3.9, 108, 26, 6, 0.61, and 103. LFTs; T bilirubin 0.7, AST 34, ALT 37, alkaline phosphatase 39, total protein 5.2, and albumin 3.2. Urinalysis on admission; 1.043, present ketones, blood of 11 to 20 red blood cells. Toxicology screen was positive only for benzos on admission. Chest x-ray on admission, no acute cardiopulmonary process. PROCEDURE PERFORMED: EGD with a large ulcer in the distal esophagus with an adherent clot. EGD showed a large circumferential ulcer over the distal esophagus with blood clot and also hemorrhagic-appearing mucosa, retained blood clot in the gastric fundus, but no active bleeding, and a hiatal hernia. DIET: Regular. ACTIVITY: As tolerated. FOLLOWUP: 1. Follow up with Dr. Luna in 2 to 3 weeks for monitoring of the esophageal ulcer. 2. Follow up with Dr. Boateng this week to address any health concerns to include any underlying mood concerns as well as support with alcohol cessation. CODE STATUS: Full. DISCHARGE DISPOSITION: Home with Home Health. Reviewed with this patient this hospitalization, the importance of medication, the importance of followup and to seek care and return for care precautions. He demonstrates understanding. Total time coordinating discharge is 30 minutes. Job ID: [id number] [facility]
== END 2018-10-12 14:41 | disposition home or self-care (01) | DRG 381 ==
LOC: ERS 22:54 → IMCU/EMU 10-09 01:24 → T4-A 10-10 16:11
PROVIDERS: ADMIT Hospitalist; ATTEND Hospitalist
PROC: 0DJ08ZZ Inspection of Upper Intestinal Tract, Via Natural or Artificial Opening Endoscopic (ICD-10-PCS; principal; 2018-10-09)
DX: K22.11 Ulcer of esophagus with bleeding (principal); G93.40 Encephalopathy, unspecified; E72.20 Disorder of urea cycle metabolism, unspecified; D62 Acute posthemorrhagic anemia; F10.239 Alcohol dependence with withdrawal, unspecified; I10 Essential (primary) hypertension; F17.210 Nicotine dependence, cigarettes, uncomplicated; K72.90 Hepatic failure, unspecified without coma; F39 Unspecified mood [affective] disorder; K44.9 Diaphragmatic hernia without obstruction or gangrene; E88.09 Other disorders of plasma-protein metabolism, not elsewhere classified; Z71.41 Alcohol abuse counseling and surveillance of alcoholic; Z90.49 Acquired absence of other specified parts of digestive tract
CPT/HCPCS: 36415; 71045; 80048; 80053; 80306; 80307; 81003; 81015; 82140; 82553; 82728; 83540; 83550; 83605; 83690; 83735; 84100; 84484; 85014; 85018; 85025; 85610; 85730; 86850; 86900; 86901; 93005; 96361; 96365; 96366; 96374; C9113; J2060; J2354; J2405; J3411; J3475; J3490; J7050